=== PATIENT | female | born 1995 | race Caucasian/White ===

== ENCOUNTER 2021-02-03 10:37 | Emergency (ER) | payer OTHER ==
[~2021-02-03 10:37] MED LIST: COLACE 100MG C100 MG PO
[2021-02-03 11:34] LABS: HEMOGLOBIN 14.3 gm/dl (12.3-15.3); RED BLOOD COUNT 4.37 M/UL (4.00-5.10); WHITE BLOOD COUNT 21.1 K/UL (4.5-11.0)
[2021-02-03 11:52] LABS: BUN/CREATININE RATIO 15 (0-10)
[2021-02-03] MEDS ORDERED: FLOMAX0.4 MG PO (14:44)
[2021-02-03] MEDS ORDERED: HYDROCODON-ACE1 EAC4 PO (14:49)
== END 2021-02-03 15:30 | disposition home or self-care (01) ==
LOC: ER1 10:37
PROVIDERS: Physician Assistant
DX: N13.2 Hydronephrosis with renal and ureteral calculous obstruction (principal); Z88.0 Allergy status to penicillin; Z90.89 Acquired absence of other organs
CPT/HCPCS: 80053; 81001; 83605; 83690; 84703; 85025; 87040; 87086; 96374; 96375; 99284; J0696; J1644; J1885; J2405; J7030

== ENCOUNTER → 2021-08-31 | Outpatient (CLI) | payer BC, OTHER ==
[~2021-08-31] MED LIST changes: +FLOMAX0.4 MG PO; +HYDROCODON-ACE1 EAC4 PO
== END ==
LOC: LAB 09:03
DX: Z32.00 Encounter for pregnancy test, result unknown (principal)
CPT/HCPCS: 36415; 84702